=== PATIENT | female | born 1960 | race Caucasian/White ===

== ENCOUNTER 2020-07-01 08:13 | Emergency (ER) | payer OTHER ==
[~2020-07-01 08:13] MED LIST: ALL DAY ALLERGY10 M2 PO; FLEXERIL5 MG PO; LIPITOR40 MG PO; METFORMIN HCL500 MG PO; NORCO 5-325 TA1 EACH PO; NORVASC5 MG PO; PERCOCET 5-3251 EACH PO; PRILOSEC20 MG PO; PRINIVIL20 MG PO; TRAMADOL HCL50 MG PO; TRAZODONE 50MG50 MG PO; ULTRA-LIGHT RO1 EACH XX; VITAMIN D250 MCG PO; XARELTO10 MG PO
== END 2020-07-01 10:03 | disposition other institution (70) ==
LOC: FER 08:13
DX: S52.101A Unspecified fracture of upper end of right radius, initial encounter for closed fracture (principal); S52.001A Unspecified fracture of upper end of right ulna, initial encounter for closed fracture; I10 Essential (primary) hypertension; E11.9 Type 2 diabetes mellitus without complications; Z88.8 Allergy status to other drugs, medicaments and biological substances; Z88.1 Allergy status to other antibiotic agents; Z79.84 Long term (current) use of oral hypoglycemic drugs; Z79.899 Other long term (current) drug therapy; W18.09XA Striking against other object with subsequent fall, initial encounter; Y92.89 Other specified places as the place of occurrence of the external cause; Y99.0 Civilian activity done for income or pay
CPT/HCPCS: 73070; J1885

== ENCOUNTER 2020-07-14 11:24 | Emergency (ER) | payer OTHER ==
[2020-07-14] MEDS ORDERED: IBUPROFEN800 MG PO (13:05)
[2020-07-14] MEDS ORDERED: CEPHALEXIN500 M1 PO (13:05)
== END 2020-07-14 13:42 | disposition home or self-care (01) ==
LOC: FER 11:24
DX: I80.8 Phlebitis and thrombophlebitis of other sites (principal); I10 Essential (primary) hypertension; E11.9 Type 2 diabetes mellitus without complications; Z88.1 Allergy status to other antibiotic agents; Z88.8 Allergy status to other drugs, medicaments and biological substances
CPT/HCPCS: 93971